=== PATIENT | male | born 1955 | race Caucasian/White ===

== ENCOUNTER 2018-09-26 16:30 | Emergency (ER) | payer OTHER, SELFPAY ==
[2018-09-26 16:33] VITALS: BP 175/102; PULSE 76; RESP 16; TEMP 36.6; O2SAT 99
--- NOTE | 2018-09-26 16:37 | DI.RAD_ITS ---
SYMPTOM/DIAGNOSIS: STRUCK BY SAW RIGHT THUMB: Three views were obtained. There are degenerative changes of the joints of the thumb. A couple of small ossific or calcific radiodensities are noted adjacent to the head of the proximal phalanx of the thumb, these could represent small chip or avulsion fragments. Please correlate with the exact site of the patient's injury. No other significant bony abnormality is seen.
--- NOTE | 2018-09-26 16:38 | W.ED.GENAD ---
Discharge Plan Disposition Patient Disposition: HOME Condition: Improving Discharge Details Chief Complaint: Laceration Clinical Impression: Laceration of right thumb Primary Care Provider: Valentina Carlton ED Provider: Jelani Sullivan Home Meds and New Rx's Prescriptions: New cephalexin 500 mg capsule 500 mg PO TID 5 Days Qty: 15 RF: 0 Continued finasteride 1 MG tablet 1 mg PO DAILY RF: 0 simvastatin 5 MG tablet 10 mg PO DAILY RF: 0 losartan 25 mg Tablet 25 mg PO DAILY RF: 0 Discharge Instructions Instructions: Laceration (ED) Additional Instructions: Return for removal of stitches in 9 to 10 days time. Return sooner for fever, redness, discharge from the wound. Take antibiotics as prescribed. Medical Decision Making 63-year-old male presents from work after a hole saw kicked out of his right hand and cut him on the right thumb. He has approximately 2 separate 1-1/2 cm lacerations, the distal one overlies the distal phalanx with exposure of the extensor tendon which is revealed to be intact. The other on the radial side with normal apposition. Examined in a bloodless field without evidence of foreign body. X-ray without evidence of fracture. Pt anesthetized and repaired with interrupted nylon sutures. Total of 7 sutures.. Placed on Keflex to given exposure of tendon. He is to return for any concerning signs of infection, return in 9 to 10 days for suture removal HPI General Mode of arrival: ambulatory. Date/Time Provider Initiated Documentation: 09/26/18 16:31. Limitations to Documentation: no limitations. Information obtained by: patient. History of Present Illness 63 year old M presents to the emergency department with the chief complaint of Right thumb injury at work, laceration, described as moderate, Quality is described as dull and constant, and is localized to the right and upper extremity. Patient reports no radiation. Patient started experiencing this minute(s) and it has been constant. No relieving factors improve symptom(s), No exacerbating factors reported . Patient notes denies weakness. Patient did receive the following treatments prior to arrival, none Related Data Home Medications Medication Instructions Recorded Confirmed finasteride 1 mg PO DAILY 07/23/13 09/26/18 simvastatin 10 mg PO DAILY 07/23/13 09/26/18 cephalexin 500 mg PO TID 5 Days #15 cap 09/26/18 losartan 25 mg PO DAILY 09/26/18 09/26/18 Previous Rx's Medication Instructions Recorded cephalexin 500 mg PO TID 5 Days #15 cap 09/26/18 Allergies Allergy/AdvReac Type Severity Reaction Status Date / Time morphine Allergy Intermediate rash/reddness Unverified 09/26/18 16:37 in arm General Stated Complaint: Laceration MAYA: 4 Review of Systems Review of Systems No numbness, tingling, weakness. Tetanus up-to-date 2 years ago [facility] Social History Smoking/Tobacco Use Status: Former Tobacco Use Alcohol Intake: never Drug use: Never Do you feel safe at home: Yes Do you feel safe in your relationship?: Yes Exam Narrative Exam Narrative: GEN: awake, alert, oriented 3. Pleasant, well groomed, interactive. HEAD: Normocephalic, atraumatic ENT: Mucous membranes moist, oropharynx unremarkable, External ear exam unremarkable EYES: PERRL, EOMI EXT: Full ROM, no edema, no rash. Full motor and sensory intact in the bilateral upper extremity including two-point discrimination at the right thumb of 1 cm. The right thumb has 2 radial aspect lacerations, one overlying the extensor tendon which reveals it to be intact. The other on the palmar side. Normal apposition of the thumb. Capillary refill less than 2 seconds. 2+ radial pulse in the bilateral upper extremity Neuro: Grossly normal neurologic exam, conversant, interactive. Psych: Speech fluent, thoughts congruent, affect normal Course Vital Signs Temperature 36.6 C 09/26/18 16:33 Pulse 76 09/26/18 16:33 Respiratory Rate 16 09/26/18 16:33 Blood Pressure 175/102 H 09/26/18 16:33 Pulse Oximetry 99 09/26/18 16:33 Temperature 36.6 C 09/26/18 16:33 Pulse 76 09/26/18 16:33 Respiratory Rate 16 09/26/18 16:33 Respiratory Effort Non-Labored 09/26/18 16:36 Blood Pressure 175/102 H 09/26/18 16:33 Blood Pressure Position Sitting 09/26/18 16:33 Pulse Oximetry 99 09/26/18 16:33 Oxygen Delivery Method Room Air 09/26/18 16:33 Oxygen Flow Rate 0 09/26/18 16:33 Pain Level 4 09/26/18 16:33 Procedures Laceration Laceration 1: Site: hand Side (If applicable): right Size (cm): 4 Description: irregular Depth: simple, single layer Local Anesthetic: Lidocaine 1% Amount of anesthesia used (mL): 2 Pre-repair: wound explored, irrigated extensively and deep structures intact Skin layer closed with: nylon Size (cm): 4-0 Number of sutures: 7 Technique: simple, interrupted
--- NOTE | 2018-09-26 17:13 | DI.VRAD_ITS ---
EXAM: XR Right Finger(s) EXAM DATE/TIME: 09/26/2018 4:38 PM CLINICAL HISTORY: 63 years old, male; Other: Thumb struck by saw/drill TECHNIQUE: Imaging protocol: XR Right fingers. Views: Minimum 2 views. COMPARISON: No relevant prior studies available. FINDINGS: Bones/joints: There is no dislocation. Her several small osseous densities adjacent to the dorsal aspect of the head of the proximal phalanx of the thumb the largest measuring 3 mm in diameter most likely is arose from the dorsal aspect of the proximal phalanx. Soft tissues: There is no radiopaque foreign body. There appears to be a soft tissue swelling over this area. IMPRESSION: Tiny osseous fragments over the dorsum of the head of the proximal phalanx of the thumb difficult to tell whether this is not an old injury. However if this is the site of the current injury as indicated by a soft tissue swelling over the Elder Mr. probably new tiny fracture fragments. The fracture fragments do not appear to affect the articular surface. Dictated and Authenticated by: Ronaldo Mcintyre MD. Ordering:TREY Palomares MD
== END 2018-09-26 18:05 | disposition home or self-care (01) ==
PROVIDERS: Emergency Provider Emergency Medicine
DX: S61.011A Laceration without foreign body of right thumb without damage to nail, initial encounter (principal); W31.2XXA Contact with powered woodworking and forming machines, initial encounter
CPT/HCPCS: 12001; 99283; 73140; 99282

== ENCOUNTER 2018-10-06 09:30 | Emergency (ER) | payer OTHER, SELFPAY ==
[2018-10-06 09:32] VITALS: BP 148/88; PULSE 66; RESP 20; TEMP 36.6; O2SAT 97
--- NOTE | 2018-10-06 09:39 | ED.GENADUL_ITS ---
Discharge Plan Disposition Patient Disposition: HOME Condition: Stable Discharge Details Chief Complaint: SutureRem Clinical Impression: Encounter for removal of sutures Primary Care Provider: Valentina Carlton ED Provider: Sherri Escobar Home Meds and New Rx's Prescriptions: Continued finasteride 1 MG tablet 1 mg PO DAILY RF: 0 simvastatin 5 MG tablet 10 mg PO DAILY RF: 0 losartan 25 mg Tablet 25 mg PO DAILY RF: 0 Discharge Instructions Instructions: Stitches Removal (ED), Finger Laceration (ED) Additional Instructions: Please return immediately to the emergency department if you develop any new or worsening symptoms, if your condition does not improve as expected, or if you become otherwise concerned. It is extremely important that you call as soon as possible to make an appointment to be seen in follow-up for this visit by your primary care doctor. Referrals: Valentina Carlton [Primary Care Provider] - Medical Decision Making Dylan Goddard is a 63 y/o man with history of hypertension, BPH who presents the emergency department for suture removal after having sutures placed for 2 thumb lacerations 09/26/2018. On exam patient is very well and nontoxic appearing. There is mild wound dehiscence of the laceration across the IP joint, thumb is neurovascularly intact. No evidence of infection. Concerned that sutures are becoming slightly embedded in wounds, will removed today and place bacitracin, baseball splint to prevent further wound dehiscence. I had a lengthy discussion with the patient regarding home care, return to emergency department precautions, further dehiscence prevention, and importance of outpatient follow- up. Patient verbalized understanding the plan was amenable. All questions were answered. Patient was discharged home with clear plan for outpatient follow-up. Medical Records Medical records reviewed: Yes I reviewed the patient's medical records. HPI General Mode of arrival: ambulatory . Date/Time Provider Initiated Documentation: 10/06/18 09:39 . Limitations to Documentation: no limitations . Information obtained by: patient, RN notes reviewed and old records reviewed . HPI Narrative: Dylan Goddard is a 63-year-old man with history of BPH, hypertension presenting to the emergency department for suture removal. Per patient and record review, patient was seen here 09/26 for lacerations to the right thumb. To lacerations were present, they were repaired with a total of 7 sutures. Patient reports that he noticed that 2 of the stitches fell out on the gauze dressing in the past 2 days. He states there has been no pain, no swelling, no redness, no drainage from the lacerations. Feels well in his usual state of health. Related Data Home Medications Medication Instructions Recorded Confirmed finasteride 1 mg PO DAILY 07/23/13 09/26/18 simvastatin 10 mg PO DAILY 07/23/13 09/26/18 losartan 25 mg PO DAILY 09/26/18 09/26/18 Allergies Allergy/AdvReac Type Severity Reaction Status Date / Time morphine Allergy Intermediate rash/reddness Unverified 09/26/18 16:37 in arm General Stated Complaint: SutureRem MAYA: 5 Review of Systems Review of Systems Constitutional: denies fevers Eyes: denies eye pain ENT: denies facial pain, dental pain, sore throat Cardiovascular: denies chest pain GI: denies abdominal pain : denies flank pain MSK: denies back pain, neck pain, arthralgias, myalgias Skin: denies rash Neuro: denies headaches [facility] Social History Smoking/Tobacco Use Status: Former Tobacco Use Alcohol Intake: never Drug use: Never Do you feel safe at home: Yes Do you feel safe in your relationship?: Yes Exam Narrative Exam Narrative: Constitutional: well and [id number], pleasant, conversing normally HENT: head atraumatic/normocephalic/normal inspection, mucous membranes moist Eyes: conjunctiva normal, sclera normal, pupils 3mm b/l Neck: no stridor, normal ROM, trachea midline Resp: normal work of breathing Cardio: normal rate, normal rhythm Skin: warm, dry, normal color, no rash Neuro: alert, not altered, grossly non-focal, normal tone Ext: Right thumb with 2 healing lacerations. Laceration across IP joint with only 2 out of the original [address] Mild wound dehiscence. No erythema, drainage or edema of either laceration. Brisk cap refill of the distal thumb. FROM of the thumb. Psych: normal mood, normal affect, normal behavior Course Vital Signs Temperature 36.6 C 10/06/18 09:32 Pulse 66 10/06/18 09:32 Respiratory Rate 20 10/06/18 09:32 Blood Pressure 148/88 H 10/06/18 09:32 Pulse Oximetry 97 10/06/18 09:32 Temperature 36.6 C 10/06/18 09:32 Temperature Source Skin 10/06/18 09:32 Pulse 66 10/06/18 09:32 Respiratory Rate 20 10/06/18 09:32 Respiratory Effort Non-Labored 10/06/18 09:34 Blood Pressure 148/88 H 10/06/18 09:32 Pulse Oximetry 97 10/06/18 09:32 Oxygen Delivery Method Room Air 10/06/18 09:32 Oxygen Flow Rate 0 10/06/18 09:32
--- NOTE | 2018-10-06 09:49 | NUR.NOTE ---
splint applied to affected site with bacitracin csd Nursing Note:
== END 2018-10-06 09:48 | disposition home or self-care (01) ==
PROVIDERS: Emergency Provider Student in an Organized Health Care Education/Training Program
DX: S61.011D Laceration without foreign body of right thumb without damage to nail, subsequent encounter (principal); W31.2XXD Contact with powered woodworking and forming machines, subsequent encounter; Z48.02 Encounter for removal of sutures; T81.33XA Disruption of traumatic injury wound repair, initial encounter
CPT/HCPCS: 29130; 99283; 99281